=== PATIENT | female | born 1955 | race Caucasian/White ===

== ENCOUNTER 2016-06-21 15:11 | Inpatient (IN) | payer OTHER ==
[~2016-06-21] VITALS: Ht 167.6 cm; Wt 66.0 kg
[2016-06-21 15:37] LABS: BASOPHILS 0.3 % (0.0-2.0); EOSINOPHILS 0.5 % (0-7); HEMATOCRIT 39.9 % (36.0-48.0); HEMOGLOBIN 13.4 g/dL (12-16); IMMATURE GRANULOCYTES 0.2 % (0-5); LYMPHOCYTES 43.9 % (15-50); MCH 34.4 pg (26.0-34.0); MCHC 33.6 g/dL (31.0-37.0); MCV 102.3 fL (80.0-100.0); MEAN PLATELET VOLUME 10.5 fL (7.4-10.4); MONOCYTES 13.5 % (2-11); NEUTROPHILS 41.6 % (40-80); PLATELET COUNT 152 10x3/uL (130-400); RDW 12.6 % (11.5-14.5); WBC 6.1 10x3/uL (4.8-10.8)
[2016-06-21 15:54] LABS: APTT 30.4 SECONDS (22.8-39.4); INR 0.92 (0.85-1.17); PROTIME 12.2 SECONDS (11.6-15.0)
[2016-06-21 16:06] LABS: ALBUMIN 4.1 g/dL (3.4-5.0); BILIRUBIN - TOTAL 0.37 mg/dL (0.2-1.3); CALCIUM 9.5 mg/dL (8.5-10.1); CARBON DIOXIDE 26.9 mmol/L (21.0-32.0); POTASSIUM - SERUM 3.9 mmol/L (3.5-5.1); PROTEIN - SERUM 7.9 g/dL (6.4-8.2)
[2016-06-21 21:49] LABS: UDS - AMPHET NEGATIVE QUAL (NEGATIVE); UDS - BARB NEGATIVE QUAL (NEGATIVE); UDS - BENZO NEGATIVE QUAL (NEGATIVE); UDS - COCAINE NEGATIVE QUAL (NEGATIVE); UDS - METH NEGATIVE QUAL (NEGATIVE); UDS - OPIATE NEGATIVE QUAL (NEGATIVE); UDS - PCP NEGATIVE QUAL (NEGATIVE); UDS - THC NEGATIVE QUAL (NEGATIVE)
--- NOTE | 2016-06-21 23:08 | NUR ---
RECEIVED TO ROOM 2101 60 Y/O FEMALE UNDER DR HINES'S CARE FOR CVA FROM ER VIA STRETCHER, AT BEDSIDE. DROWSY, SEDATED, DOES KNOW WHERE SHE IS. RT FA SL INTACT WITH NO R/S NOTED AT SITE. ORIENTATION TO ROOM, BED, C/L PHONE AND BATHROOM GIVEN WITH UNDERSTANDING VERBALIZED. LEFT SIDE FACIAL DROOP NOTED, SPEECH CLEAR AT TIMES, OTHERWISE SLURRED.HANDGRIPS EQUAL.HOB UP SR UP X2, C/L IN REACH. CONTINUE TO MONITOR.
[2016-06-22] VITALS (7 sets, daily range): BP systolic 112–145; BP diastolic 62–90; Ht 167.6 cm; Wt 66.0 kg
[2016-06-22] MEDS ORDERED: AMBIEN5 MG (00:57)
[2016-06-22] MEDS ORDERED: TOPROL XL25 MG (00:57)
[2016-06-22] MEDS ORDERED: LISINOPRIL10 MG (00:58)
[2016-06-22] MEDS ORDERED: ZOLOFT25 MG (00:59)
--- NOTE | 2016-06-22 01:56 | NUR ---
EYES CLOSED, RESP UNLAB WITH NO S/S OF ACUTE DISTRESS NOTED. C/L IN REACH.
--- NOTE | 2016-06-22 07:31 | NUR ---
AM ROUNDING- PT LAYING ON LEFT SIDE SLEEPING. AT BEDSIDE. IV SEEN TO RIGHT FOREARM THAT IS SALINE LOCKED AND PATENT. ON ROOM AIR. NO MONITOR. PER REPORT FROM LOCAL TELEPHONE OPERATOR NURSE SREE, SREE STATED THAT SHE DID MOST OF PTS HOME MEDICATIONS ON ADMISSION BUT THERE WERE STILL SOME THAT NEEDED TO BE DONE. PER LOCAL TELEPHONE OPERATOR NURSE SREE, PTS IS SUPPOSE TO BRING THE REST OF PTS MEDICATION LIST TO BE UPDATED. WILL CONTINUE TO MONITOR.
[2016-06-22 08:17] LABS: CHOL - HDL RATIO 3.8 ratio (2.3-4.1); LDL-HDL RATIO 2.5 ratio (1.5-3.5)
[2016-06-22 09:27] LABS: HEMOGLOBIN A1C 5.4 % (4.8-6.0)
[2016-06-22] MEDS ORDERED: BUSPAR 15 MG TA15 MG PO (13:37)
[2016-06-22] MEDS ORDERED: HYDROXYZINE PA100 MG PO (13:38)
--- NOTE | 2016-06-22 13:39 | NUR ---
WHILE ASKING PT AND ABOUT HOME MEDICATION, STATED THAT DOCTOR CAME IN THIS MORNING AND WENT THROUGH PTS HOME MEDICATIONS AND TYPED THEM ALL IN THE COMPUTER. UPDATED MEDICATION LIST WITH TWO MORE MEDICATIONS THAT WEREN'T IN THE SYSTEM YET BY THE HELP OF THE PT AND . WAS BEING HELPFUL LETTING ME KNOW WHICH MEDICATIONS WERE BEING TAKEN. PT TOLD ME WHEN THE LAST TIME SHE TOOK THEM WAS. PT GOT UPSET BECAUSE STATED A MEDICATION PT WAS TAKING FOR HER "DRINKING" STATED AND PT ASKED ME TO LEAVE THE ROOM. DID PT REQUESTED. WILL CONTINUE TO MONITOR.
--- NOTE | 2016-06-22 15:28 | NUR ---
SCD'S ON BILATERAL LE
--- NOTE | 2016-06-22 17:18 | NUR ---
UPON BEING CALLED INTO PTS ROOM, PTS STATED PT SLIDE DOWN BED AND CAUGHT HERSELF WHILE TRYING TO USE THE BATHROOM. PT HAS SLIGHT FACIAL DROOP TO LEFT SIDE WITH UNEQUAL PLASTICS HEAT WELDER STRENGTH. PUPILS ARE EQUAL. PT STATED HER NAME, , AND WHAT YEAR IT IS. SHE IS ALERT TO PERSON, PLACE, AND TIME. PAGED DR. HINES TO INFORM HIM OF THIS. AWAITING CALLBACK.
--- NOTE | 2016-06-22 17:21 | NUR ---
INFORMED PT AND FOR PT TO NOT TAKE ANYTHING BY MOUTH.
--- NOTE | 2016-06-22 17:25 | NUR ---
DR. HINES CALLED BACK. INFORMED HIM OF WHAT HAPPENED. NO NEW ORDERS RECEIVED.
--- NOTE | 2016-06-22 18:32 | NUR ---
PT IS LAYING IN BED ON BACK WITH EYES CLOSED RESTING. FAMILY MEMBERS AT BEDSIDE. BED ALARM ON. PT HAS SLIGHT FACIAL DROOP TO LEFT SIDE WITH LEFT ARM WEAKNESS AND LEFT LEG WEAKNESS. DR. HINES IS AWARE. WILL PASS THIS ON IN REPORT AND CONTINUE TO MONITOR.
--- NOTE | 2016-06-22 19:30 | NUR ---
ASSIST WITH USE OF BEDPAN, BENSON WELL. LEFT ARM PARALYSIS NOTED ALONG WITH LEFT FACIAL DROOP AND SLURRED SPEECH. MULTIPLE FAMILY MEMBERS VISITING AT BEDSIDE. BANANA BAG INFUSING W/O DIFF VIA PUMP @ 100CC/HR WITH NO R/S NOTED AT SITE ON RIGHT ARM. ALERT AND ORIENTED X3, RESP UNLAB. VOICES NO C/O PAIN OR DISCOMFORT AT THIS TIME. HOB UP SR UP X2, C/L IN REACH. CONTINUE TO MONITOR.
--- NOTE | 2016-06-22 21:26 | NUR ---
ATIVAN 2MG IV ADM. FOR S/S AND VERBAL C/O ANXIETY. BENSON INJ WELL. C/L IN REACH.
[2016-06-23 01:12] VITALS: BP 105/67
--- NOTE | 2016-06-23 02:28 | NUR ---
EYES CLOSED, RESP UNLAB WITH NO S/S OF ACUTE DISTRESS NOTED. C/L IN REACH. FAMILY MEMBERS AT BEDSIDE.
[2016-06-23 05:21] VITALS: BP 134/65
--- NOTE | 2016-06-23 07:15 | NUR ---
BED ALARM GOING OFF. PT HAD SLID HERSELF FROM THE BED INTO THE CHAIR NEXT TO HER BED. NO INJURY NOTED. PT REMINDED TO CALL FOR ASSISTANCE. PT A/O X3 , BUT SEEM SLIGHTLY CONFUSED. PT DENIES NEEDS EXCEPT JUST WANTING TO GET UP. PT'S SON WAS IN THE ROOM, BUT HAD STEPPED OUT FOR A MINUTE. ASSESMENT DONE. CALL LIGHT WITH IN REACH. WILL CONT. TO MONITOR. BOX ALARM PLACED BACK ONTO PT'S SHIRT.
[2016-06-23 08:49] VITALS: BP 117/73
--- NOTE | 2016-06-23 09:30 | NUR ---
UP TO CHAIR WITH CALL LIGHT IN REACH. PAPER TUBE MACHINE OPERATOR AT BS ASSISTING WITH NEEDS. WILL CONT. PLAN OF CARE.
[2016-06-23 12:16] VITALS: BP 118/64
[2016-06-23 14:52] VITALS: BP 96/52
--- NOTE | 2016-06-23 17:52 | NUR ---
PT SLEEPING. APPEARS COMFORTABLE. FAMILY IN ROOM. BOX ALARM ATTACHED TO PT. CALL LIGHT WITH INREACH. WILL CONT. TO MONITOR.
[2016-06-23 20:00] VITALS: BP 117/64
--- NOTE | 2016-06-23 23:07 | NUR ---
Recieved report, patient A & O , left side facal drooping, left side weakness , box alarm attached, family at bedside, refuses SCD's, left forearm per. IV, patent, saline locked, uses bed haley with family assist, no acute distress noted or voiced by patient, call light, water and bedside table in reach.
[2016-06-24] VITALS: BP 107/69
--- NOTE | 2016-06-24 01:08 | NUR ---
Patient resting quietly in bed eyes closed, family at bedside, call light, water and bedside table within reach, no acute distress noted, will continue to monitor.
[2016-06-24 04:00] VITALS: BP 108/65
--- NOTE | 2016-06-24 04:50 | NUR ---
Patient resting in bed eyes closed, family at bedside, call light and hydration in reach, will continue to monitor.
--- NOTE | 2016-06-24 08:04 | NUR ---
ASSESSMENT DONE. PT SLEEPING. EASILY AROUSED. PT ABLE TO MOVE LEFT ARM SOME TODAY. REPORT SOME FEELING IN ARM. SPEECH IMPROVING. SON AT BEDSIDE. PT DENIES NEEDS AT THIS TIME. CALL LIGHT WITH INREACH. WILL CONT. TO MONITOR.
[2016-06-24 08:34] VITALS: BP 112/67
--- NOTE | 2016-06-24 09:58 | NUR ---
IV PATENT. CALL LIGHT IN REACH. WILL CONT. PLAN OF CARE.
[2016-06-24] MEDS ORDERED: AMBIEN10 MG PO (10:21)
[2016-06-24] MEDS ORDERED: BUSPAR 15 MG TA15 MG PO (10:21)
[2016-06-24] MEDS ORDERED: LISINOPRIL10 MG PO (10:22)
[2016-06-24] MEDS ORDERED: METOPROLOL TART25 MG PO (10:26)
[2016-06-24] MEDS ORDERED: HYDROXYZINE PA100 MG PO (10:27)
[2016-06-24] MEDS ORDERED: ZOLOFT100 MG PO (10:27)
--- NOTE | 2016-06-24 10:38 | NUR ---
Nutrition follow-up: Diet: regular puree with thin liquids PO intake 75-100% of meals labs reviewed Wt: 145# Banana Bag discontinued Will provide food choices with selective menus and honor food preferences within diet restrictions. RDN following.
--- NOTE | 2016-06-24 10:56 | NUR ---
Rehab Note- The patient has [employer] insurance. Spoke with Vandana Raymond in business office & stated does not have IRF benefits. Informed Onofre Clark that patient doesn't have IRF benefits. Thank you for this referral! Mary Lynn RN Clinical Liaison, [facility]
[2016-06-24 11:00] VITALS: BP 109/63
--- NOTE | 2016-06-24 12:37 | NUR ---
PT LAYING IN BED TALKING ON THE PHONE. A/O. SPEECH ONLY SLIGHTLY SLURRED. FAMILY AT BEDSIDE. DENIES NEEDS. CALL LIGHT WITH IN REACH. WILL CONT TO MONITOR.
--- NOTE | 2016-06-24 15:37 | NUR ---
PT C/O HEADACHE WITH NUMBNESS AND TINGLINGLING ON RIGHT SIDE OF FACE. ALSO, C/O DIZZINESS AND INCREASE IN LEFT LEG WEAKNESS. CALL AND SPOKE WITH DR. MILIAN. RECEIVED ORDERS FOR COUMADIN 5MG NOW AND TO START DAILY PT/INR IN AM. ALSO TO GIVE LOVENOX 30MG SQ NOW. PT NOTIFIED. WILL CONT. TO MONITOR.
[2016-06-24 16:39] VITALS: BP 112/63
--- NOTE | 2016-06-24 16:50 | NUR ---
Patient Name: BESSIE PIERRE Admission Status: ER Accout number: [id number] Admission Date: 06-21-2016 : 1955 Admission Diagnosis:SLURRED SPEECH Attending: LANA Current LOS: 3 Anticipated DC Date: 06-25-2016 Planned Disposition: Inpatient Rehab Primary Insurance: [employer] EXCHANGE PLANNED EXTERNAL PROVIDER: [facility] Discharge Planning Comments: * Is the patient Alert and Oriented? Yes 0 * How many steps to enter\exit or inside your home? 2 0 * PCP NONE 0 * Pharmacy [facility] 0 * Preadmission Environment Home with Family 0 * ADLs Independent 0 * Equipment None 0 * Other Equipment NO MEDICAL EQUIPMENT PROVIDER PREFERENCE 0 * List name and contact numbers for known caregivers / representatives who currently or will assist patient after discharge: SHMUEL PIERRE, SPOUSE, 0 * Community resources currently utilized None 0 * Please name any agencies selected above. NONE 0 * Additional services required to return to the preadmission environment? Yes * Can the patient safely return to the preadmission environment? Yes 0 * Has this patient been hospitalized within the prior 30 days at any hospital? No 0 CM MET WITH PT IN ROOM TO DISCUSS DISCHARGE PLANNING AND NEEDS. PT REPORTS LIVING AT HOME INDEPENDENTLY WITH SPOUSE BEFORE HER STROKE. PT HAS NO MEDICAL EQUIPMENT AND NO OUTSIDE SERVICES ASSISTING IN THE HOME. CM DISCUSSED AVAILABILITY OF HOME HEALTH, REHAB SERVICES AND MEDICAL EQUIPMENT. PT WOULD LIKE INPATIENT REHAB, REPORTS HER SPOUSE WILL PICK HER UP FOR DISCHARGE HOME. PT WOULD LIKE REFERRAL SENT TO [facility], [facility] FOR INPATIENT REHAB. CM FAXED REFERRAL TO [facility], [facility], . CM TO FOLLOW UP WITH PRODUCT SAFETY TEST ENGINEER FOR [facility], [facility] TOMORROW (JAYANT, ). 6Th Grade Teacher: Riley Martínez
--- NOTE | 2016-06-24 17:42 | NUR ---
PT RESTING. FAMILY AT BEDSIDE. PT APPEARS COMFORTABLE. RESP EVEN AND UNLABORED. CALL LIGHT WITH IN REACH. WILL CONT. TO MONITOR.
--- NOTE | 2016-06-24 19:37 | NUR ---
RESUMED CARE OF PT, PT HAS L. SIDE WEAKNESS, ON RA,RFA IV-BANNANA BAG @50, REFUSING SCD, BOX ALARM ON, FAMILY AT BEDSIDE, CALL LIGHT IN REACH, BED IS LOW, SRX2, WILL CONTINUE TO MONITOR
--- NOTE | 2016-06-24 19:59 | NUR ---
IV LEAKING, REMOVED FROM RFA, DIDNT REPLACE NOTHING IV EXCEPT ATIVAN WHICH IS PRN
[2016-06-24 20:00] VITALS: BP 127/71
[2016-06-25] VITALS: BP 106/52
--- NOTE | 2016-06-25 03:20 | NUR ---
SIZE WORKER AT BEDSIDE TO OBTAIN VITALS, CALL LIGHT IN REACH. WILL CONTINUE WITH PLAN OF CARE.
[2016-06-25 04:00] VITALS: BP 125/63
[2016-06-25 06:22] LABS: INR 0.92 (0.85-1.17); PROTIME 12.2 SECONDS (11.6-15.0)
--- NOTE | 2016-06-25 07:34 | NUR ---
PT LAYING IN BED PLAYING ON TABLET. A/O. ASSESSMENT DONE. SPEECH SLURRED, MORE SO THAN YESTERDAY. PT'S IV HAD INFILTRATED THROUGHOUT THE NIGHT AND WAS REMOVED BUT NOT RESTARTED. PT C/O TREMORS AND ANXIETY. STATES SHE IS STILL HAVE DETOX S/S. REQUEST IV BE RE-SITED AND BANANA BAG BE RE-STARTED AND REQUEST ATIVAN. C/O HEADACHE AND DIZZY BUT THINKS THAT IS D/T TO DETOX S/S. CALL LIGHT WITH IN REACH. BOX ALARM ATTACH. WILL CONT. TO MONITOR.
[2016-06-25 08:31] VITALS: BP 126/64
--- NOTE | 2016-06-25 09:40 | NUR ---
RESTS IN BED WITH EYES CLOSED. CALL LIGHT IN REACH. WILL CONT. PLAN OF CARE.
--- NOTE | 2016-06-25 11:47 | NUR ---
Patient Name: BESSIE PIERRE Encounter No: [id number] : 1955 Primary Insurance: [employer] HLTH EXCHANGE Anticipated DC Date: 06-25-2016 Planned Disposition: Inpatient Rehab External Planned Provider: UNKNOWN DCP follow-up note: CM RECEIVED CALL FROM JAYANT [phone], DELIVERY PROFESSIONAL FOR [facility], PT HAS NO PRECERT REQUIRED FOR INPATIENT, $2500 DEDUCTIBLE AND $7,100 OUT OF POCKET THAT PT HAS NOT MET AT THIS TIME. PT'S TOTAL OUT OF POCKET IS $9,600, PT WILL NEED 10% DOWN AND AT LEAST MAKE PAYMENTS OF $100 PER MONTH. CM SPOKE TO PT AND SPOUSE IN ROOM, PT'S SPOUSE REPORTS HE CANNOT AFFORD THIS AND PT WILL HAVE [employer] INSURANCE POLICE # [id number] STARTING ON JUNE 30, 2016. CM DISCUSSED INPATIENT REHAB, SENIOR CARE REHAB, OUTPATIENT THERAPY AND HOME HEALTH SERVICES. PT'S SPOUSE DOES NOT THINK HE CAN TAKE CARE OF PT AT HOME. PT'S SPOUSE REVIEWED [employer] [facility] WEBSITE FOR BENEFITS AND REPORTS BEING UNSURE OF PT'S BENEIFITS STARTING IN JUNE AND IF REHAB IS GOING TO BE AFFORDABLE THEN. CM ADVISED SPOUSE TO CALL AMBETTER TO DISCUSS AVAILABLE SERVICES, WHAT IS COVERED AND HOW MUCH PT WOULD BE RESPONSIBLE FOR WELL IN NETWORK PROVIDERS. CM WAS LEAVING ROOM, PT QUICKLY GOT OUT OF BED ON THE FAR SIDE, CM CAUGHT PT AND ASKED PT TO SIT DOWN, SHE DID NOT; PT'S SPOUSE TOOK CM PLACE AND TOLD PT TO SIT BACK DOWN UNTIL HELP ARRIVED IN THE ROOM, PT DID NOT, PT'S SPOUSE PUSHED PT BACK ONTO THE BED. NURSING STAFF ARRIVED AND TOOK CONTROL OF THE SITUATION. CM WAITING PT'S SPOUSE TO EXPLORE PT'S INSURANCE BENEFITS, TO CALL AMBETTER TO DETERMINE PT'S BENEFITS AND HOW MUCH REHAB WILL COST PT OUT OF POCKET AND TO MAKE DECISION FOR REHAB PLACEMENT. Riley Martínez, CASE MANAGEMENT
[2016-06-25 12:05] VITALS: BP 113/67
--- NOTE | 2016-06-25 15:58 | NUR ---
PT SLEEPING. APPEARS COMFORTABLE. RESP EVEN AND UNLABORED. SPOUSE AT BEDSIDE. BOX ALARM ATTACHED TO PT. CALL LIGHT WITH IN REACH. WILL CONT. TO MONITOR.
[2016-06-25 16:00] VITALS: BP 129/74
--- NOTE | 2016-06-25 18:03 | NUR ---
PT SITTING UP IN BED VISIT WITH FAMILY. NO DISTRESS NOTED. BOX ALARM ATTACHED. CALL LIGHT WITH IN REACH. WILL CONT. TO MONITOR.
--- NOTE | 2016-06-25 19:32 | NUR ---
RESUMED CARE OF PT, ,. IV-R. WRIST-SL, BOX ALARM ON, FAMILY AT BEDSIDE, DENIES ANY NEEDS, CALL LIGHT IN REACH, BED IS LOW, SRX2, WILL CONTINUE TO MONITOR
[2016-06-25 20:49] VITALS: BP 128/76
[2016-06-26 00:02] VITALS: BP 116/75
[2016-06-26 04:15] VITALS: BP 138/92
[2016-06-26 06:41] LABS: INR 1.03 (0.85-1.17); PROTIME 13.3 SECONDS (11.6-15.0)
--- NOTE | 2016-06-26 07:23 | NUR ---
AM ROUNDING- PT LAYING ON LEFT SIDE WITH EYES CLOSED RESTING. FAMILY MEMBER (SON) AT BEDSIDE RESTING. IV SEEN TO RIGHT WRIST THAT IS SALINE LOCKED AND PATENT. BEDSIDE COMMODE SEEN. ON ROOM AIR. PER REPORT FROM SENIOR COMPUTER SPECIALIST NURSE, MARIA E PT HAS LEFT SIDED WEAKNESS. NO NEED AT CURRENT TIME. WILL CONTINUE TO MONITOR.
--- NOTE | 2016-06-26 07:38 | NUR ---
PAGED DR. VILLEDA TO LET HER KNOW OF PTS PT/INR LAB RESULTS FROM THIS MORNING ORDERED. AWAITING CALLBACK.
--- NOTE | 2016-06-26 07:43 | NUR ---
RECEIVED CALLBACK FROM DR. VILLEDA WITH NEW ORDERS. WILL CONTINUE TO MONITOR.
[2016-06-26 08:55] VITALS: BP 131/77
--- NOTE | 2016-06-26 10:33 | NUR ---
PT REFUSES SCDS. PT IS ON LOVENOX INJECTION FOR DVT PREVENTION.
[2016-06-26 13:42] VITALS: BP 105/61
--- NOTE | 2016-06-26 14:08 | NUR ---
PTS FAMILY MEMBER CAME TO ME TO INFORM ME THAT PT FELL WHEN GETTING UP FROM THE BATHROOM. PTS FAMILY MEMBER STATED SHE DID NOT HIT HER HEAD. PT DENIES ANY PAIN AT THIS TIME. INFORMED PT THAT NEXT TIME SHE DECIDES TO GET UP FROM THE BATHROOM OR GO TO THE BATHROOM TO MAKE SURE SHE USES CALL LIGHT SO STAFF MEMBERS CAN ASSIST HER. SHE AGREED. BED ALARM IS ON, FAMILY MEMBERS ARE AT BEDSIDE, AND NON-SKID SOCKS ARE ON. WILL CONTINUE TO MONITOR.
--- NOTE | 2016-06-26 14:08 | NUR ---
1330- ASSISTED PT TO BATHROOM INSTRUCTED PT TO USE CALL LIGHT IN BATHROOM WHEN DONE SO I CAN ASSIST HER BACK TO BED. PT AGREED.
--- NOTE | 2016-06-26 14:13 | NUR ---
PT IS UP WALKING WITH PHYSICAL THERAPY AROUND NURSING STATION. WILL CONTINUE TO MONITOR.
--- NOTE | 2016-06-26 16:02 | NUR ---
UPON WALKING INTO PTS ROOM, NOTICED PTS BROUGHT PT CHICKEN WINGS TO EAT. PT IS SUPPOSE TO BE ON A PUREE WITH THICKENED LIQUIDS DIET, INFORMED PT OF THIS, PT AND BOTH STATED THEY KNOW. PTS STATED HE IS GOING TO WATCH HER VERY CAREFULLY. WILL CONTINUE TO MONITOR.
[2016-06-26 17:02] VITALS: BP 95/57
--- NOTE | 2016-06-26 17:24 | NUR ---
PT SITTING UP IN BED PLAYING ON TABLET. AT BEDSIDE. NO NEED AT CURRENT TIME. WILL CONTINUE TO MONITOR.
--- NOTE | 2016-06-26 19:29 | NUR ---
RESUMED CARE OF PT, ON RA, IV-R.WRIST-SL, BOX ALARM IS ON, AT BEDSIDE, EXPLAIN IMPORTANTS OF CALLING FOR ASSIST, DENIES ANY NEEDS, CALL LIGHT IN REACH. BED IS LOW, SRX2, WILL CONTINUE TO MONITOR
[2016-06-26 20:15] VITALS: BP 107/56
[2016-06-27] VITALS (7 sets, daily range): BP systolic 94–128; BP diastolic 58–78
[2016-06-27 05:38] LABS: INR 1.18 (0.85-1.17); PROTIME 14.9 SECONDS (11.6-15.0)
--- NOTE | 2016-06-27 07:30 | NUR ---
AM ROUNDING- PT LAYING IN BED ON BACK WITH EYES OPEN RESTING. IV SEEN TO RIGHT WRIST THAT IS SALINE LOCKED AND PATENT. ON ROOM AIR. NO MONITOR. BEDSIDE COMMODE. BED BOX ALARM IS ON AND ATTACHED TO PT. ON LOVENOX INJECTION FOR DVT PREVENTION. REFUSES SCDS. SLIGHT FACIAL DROOP TO LEFT SIDE. PT HAS LEFT SIDED WEAKNESS. NO NEED AT CURRENT TIME. WILL CONTINUE TO MONITOR.
--- NOTE | 2016-06-27 14:45 | NUR ---
PT IS UP WALKING WITH PHYSICAL THERAPY.
--- NOTE | 2016-06-27 18:19 | NUR ---
PT SITTING UP IN BED ON TABLET. DENIES ANY NEED AT THIS CURRENT TIME. WILL CONTINUE TO MONITOR.
--- NOTE | 2016-06-27 19:32 | NUR ---
RECEIVED REPORT. IV-R.WRIST-SL, BOX ALARM ON, DENIES ANY NEEDS AT THIS TIME, CALL LIGHT IN REACH, BED IS LOW, SRX2, WILL CONTINUE TO MONITOR
[2016-06-28] VITALS: BP 117/61
--- NOTE | 2016-06-28 02:32 | NUR ---
SLEEPING, NO DISTRESS NOTICED, CALL LIGHT IN REACH
[2016-06-28 04:00] VITALS: BP 101/67
[2016-06-28 05:43] LABS: INR 1.23 (0.85-1.17); PROTIME 15.4 SECONDS (11.6-15.0)
--- NOTE | 2016-06-28 06:56 | NUR ---
RECEIVED PT REPORT. WILL CONTINUE PLAN OF CARE. NO CO PAIN AT THIS TIME. WILL CONTINUE TO MONITOR.
--- NOTE | 2016-06-28 07:23 | NUR ---
PT IS ALERT. ASSESSMENT DONE PER FLOWSHEET. NO OTHER NEEDS AT THIS TIME. WILL CONTINUE TO MONITOR.
[2016-06-28 08:00] VITALS: BP 110/70
[2016-06-28 12:00] VITALS: BP 96/56
--- NOTE | 2016-06-28 12:13 | NUR ---
Nutrition follow-up: Diet changed to thin liquids mechanical soft PO intake ~75% of meals Labs reviewed Wt: 143# RDN following.
--- NOTE | 2016-06-28 15:04 | NUR ---
NO SS OF DISTRESS. WILL CONTINUE TO MONTIOR.
[2016-06-28 16:00] VITALS: BP 103/65
--- NOTE | 2016-06-28 19:37 | NUR ---
RESUMED CARE OF PT, VISITING WITH FAMILY, IV-R.WRIST-SL, BOX ALARM ON, BED IS LOW, SRX2, DENIES ANY NEEDS, CALL LIGHT IN REACH
[2016-06-29] VITALS: BP 109/64
--- NOTE | 2016-06-29 01:49 | NUR ---
PT LAYING IN BED NO DISTRESS OBSERVED CALL LIGHT IN REACH WILL MONITOR
--- NOTE | 2016-06-29 02:55 | NUR ---
ANSWER CALL LIGHT PT WAS IN CHAIR, ASK HOW SHE GOT THERE, SHE SAID SHE CRAWL. I ASK IF SHE FELL SHE SAID YES, NOTICE BUMP ON HEAD, NOTIFIED KAVIN, WILL CONTINUE TO MONITOR PT
[2016-06-29 04:00] VITALS: BP 99/64
[2016-06-29 06:23] LABS: INR 1.38 (0.85-1.17); PROTIME 16.9 SECONDS (11.6-15.0)
[2016-06-29 08:20] VITALS: BP 139/83
--- NOTE | 2016-06-29 10:37 | NUR ---
PT IS ALERT. ASSESSMENT DONE PER FLOWSHEET. NO OTHER NEEDS AT THIS TIME. WILL CONTINUE TO MONITOR.
[2016-06-29 12:07] VITALS: BP 92/59
[2016-06-29 16:07] VITALS: BP 94/56
[2016-06-29] MEDS ORDERED: IPRAT-ALBUT 0.5-3 ML UPD (17:12)
[2016-06-29] MEDS ORDERED: LOVENOX30 MG/0.3 SC ×2 (17:15→17:29)
[2016-06-29] MEDS ORDERED: LISINOPRIL10 MG PO (17:23)
[2016-06-29] MEDS ORDERED: LIPITOR10 MG PO (17:23)
[2016-06-29] MEDS ORDERED: ASPIRIN81 MG PO (17:24)
--- NOTE | 2016-06-29 17:24 | NUR ---
Patient Name: BESSIE PIERRE Encounter No: [id number] : 1955 Primary Insurance: [employer] HLTH EXCHANGE Anticipated DC Date: 06-29-2016 Planned Disposition: Outpatient clinics\services (Programs) External Planned Provider: HOME WITH FOLLOW UP AT [facility] FOR DAILY LABS DCP follow-up note: CM RECEIVED CALL FROM PT'S SPOUSE WHO WANTS TO DISCHARGE HOME TODAY WITH PT. CM NOTIFIED PT'S BEDSIDE NURSE WHO HAS PAGED DR. VILLEDA AND IS WAITING RETURN CALL FROM THE PAGE. CM RECEIVED HOME HEALTH ORDER AND SPOKE TO PT AND SPOUSE IN ROOM. PT'S SPOUSE WOULD RATHER HAVE OUTPATIENT REHAB AT TOMORROW THERAPY. CM CALLED [facility], , SPOKE TO ABRAM WHO REPORTED THAT MARIAHR IS OUT OF NETWORK WITH 50% COPAY OF ALLOWED CHARGES. CM CALLED [facility] OUTPAT[facility] IN [place], SPOKE TO KETURAH WHO REPORTS BEING IN NETWORK FOR MARIAHR, BUT ONLY HAVING PHYSICAL THERAPY SERVICES AVAILABLE. CM CALLED [facility] IN [place], , THE PERSON THAT HANDLES INSURANCE WILL NOT BE IN UNTIL TOMORROW. CM NOTIFIED PT AND PT'S SPOUSE. THEY WILL ACCEPT HOME HEALTH DR. VILLEDA REPORTS PT WILL NEED LAB DRAWS; SPOUSE CHOSE [facility]. CM CALLED [facility], , SPOKE TO JAYANT WHO REPORTS BEING IN NETWORK WITH [facility] AND THEY WILL WORK WITH PT LONG PT IS ESTABLISHED WITH PRIMARY CARE DOCTOR; CM PROVIDED PT'S SPOUSE WITH JAYANT'S CARD AND DIRECTED SPOUSE TO CALL [facility] TOMORROW AFTER ESTABLISHING WITH THE DOCTOR PLANNED IN [place] TO ARRANGE HOME HEALTH FOLLOW UP. PT'S SPOUSE STATED UNDERSTANDING AND ALSO SIGNED CHOICE LETTER WELL RELEASE OF INFORMATION FOR CM TO FAX PT'S DISCHARGE INFORMATION TO DR. AISLINN HARRISON IN [place] AT PT REQUEST ([phone], [phone]). PT'S SPOUSE DENIES FURTHER DISCHARGE NEEDS. CM FAXED HOME HEALTH REFERRAL TO [facility], . FOR DISCHARGE, FAX DISCHARGE SUMMARY, INSTRUCTIONS AND MEDICATIONS TO [facility], AND TO DR. AISLINN HARRISON, . Riley Martínez, CASE MANAGEMENT
[2016-06-29] MEDS ORDERED: THIAMINE HCL50 MG PO (17:26)
[2016-06-29] MEDS ORDERED: COUMADIN5 MG PO (17:29)
--- NOTE | 2016-06-30 08:46 | NUR ---
Patient Name: BESSIE PIERRE Encounter No: [id number] : 1955 Primary Insurance: [employer] HLTH EXCHANGE Anticipated DC Date: 06-29-2016 Planned Disposition: Outpatient clinics\services (Programs) External Planned Provider: [facility] DCP follow-up note: CM FAXED DISCHARGE SUMMARY, INSTRUCTIONS AND MEDICATIONS TO [facility], AND TO DR. AISLINN HARRISON, . [facility] TO ARRANGE HOME HEALTH SERVICES WHEN PT ESTABLISHES WITH PRIMARY CARE DOCTOR; PT REPORTED HAVING APPOINTMENT TODAY WITH A DOCTOR IN [place]. PT WAS TO FOLLOW UP WITH OUTPATIENT CLINIC UNTIL HOME HEALTH ARRANGEMENTS ARE COMPLETED. Riley Martínez, CASE MANAGEMENT
--- NOTE | 2016-07-07 13:15 | EC ---
PATIENT:BESSIE PIERRE DATE OF SERVICE: 06/21/16 SEX: F MEDICAL RECORD: [id number] DATE OF : [birth year] LOCATION:D.M2 D.210 AGE OF PATIENT: 60 ADMISSION DATE: 06/21/16 REFERRING PHYSICIAN: INTERPRETING PHYSICIAN: CALE SOUTH M.D. ECHOCARDIOGRAM REPORT ECHO CHARGES 4 ECHO COMPLETE CLINICAL DIAGNOSIS: MCA INFARCT/ETOH ABUSE ECHOCARDIOGRAPHIC MEASUREMENTS (adult normal given) AC root (d.<3.7cm) 2.7 LV Septum d (<1.2 cm> 1.4 Valve Excursion 1.6 LV Septum (systole) 1.7 Left Atria (s.<4.0cm> 3.1 LVPW d(<1.2cm) 1.5 RV (d.<2.3cm) 3.3 LVPW (sytole) 1.8 LV diastole(<5.6CM) 4.8 MV E-F(>70mm/sec) LV systole 3.1 LVOT Diameter 1.7 MV exc.(>10mm) 1.5 Est.ejection fraction (50-75%) Pericardial Effusion N DOPPLER: LVIT A 91.0 E 69.0 LA RVSP 18 LVOT 107 AOP1/2T Asc. Ao 136 RVOT 102 RA PA 109 AV Gradient Peak 7.42 AV Mean 3.4 AV Area 1.8 MV Gradient Peak 3.05 MV Mean 1.41 MV Area COMMENTS: Box Car Bracer: Jesus MCCARTNEY Hydrochloric Acid Operator:2 Dr. South TAPE# PACS DATE OF SERVICE: 06/22/2016 Echocardiogram Report REFERRING PHYSICIAN: Dr. Chavez. INDICATION: CVA. DESCRIPTION: Left ventricle demonstrates left ventricular hypertrophy. No wall motion abnormalities are seen. Estimated ejection fraction is 55%. I do not ECHOCARDIOGRAM REPORT [id number] BESSIE PIERRE see any evidence of mass or thrombus in the left ventricle apex. Mitral valve is structurally normal. There is no regurgitation or prolapse seen. Left atrium is normal in size. The aortic valve is trileaflet. There is no stenosis or regurgitation seen. Right ventricle is mildly dilated. Tricuspid valve is structurally normal. There is trivial regurgitation seen. Right atrium is normal size. There is no pericardial effusion noted. IMPRESSION: 1. Left ventricular hypertrophy with preserved ejection of 55%. 2. Trivial tricuspid regurgitation. 3. No evidence of any mass or thrombus in the left ventricle apex. 4. No evidence of atrial septal defect, ventricular septal defect or patent foramen ovale. TRANSINT:[id number] Voice Confirmation ID: [id number] DOCUMENT ID: [id number] CALE SOUTH M.D. at 1315 CC: [id number] DICTATION DATE: 06/22/16 142 CARE SPECIALIST: 06/22/16 1432 DIS IN 06/29/16 [id number] [place] [address]
== END 2016-06-29 18:46 | disposition home or self-care (01) | DRG 65 ==
LOC: D.ER 15:11 → D.M2 20:38
PROVIDERS: Emergency Medicine; Psychiatry & Neurology Neurology; ADMIT Family Medicine
DX: I63.511 Cerebral infarction due to unspecified occlusion or stenosis of right middle cerebral artery (principal); G81.94 Hemiplegia, unspecified affecting left nondominant side; R48.2 Apraxia; E78.5 Hyperlipidemia, unspecified; I10 Essential (primary) hypertension; G47.00 Insomnia, unspecified; F41.8 Other specified anxiety disorders; Z74.09 Other reduced mobility; F10.10 Alcohol abuse, uncomplicated; J44.9 Chronic obstructive pulmonary disease, unspecified; Z72.0 Tobacco use

== ENCOUNTER → 2016-07-01 16:10 | Outpatient (CLI) | payer OTHER ==
[2016-06-22 09:49] VITALS: BMI 23.4
[~2016-07-01 16:10] MED LIST: AMBIEN10 MG PO; AMBIEN5 MG; ASPIRIN81 MG PO; BUSPAR 15 MG TA15 MG PO; COUMADIN5 MG PO; HYDROXYZINE PA100 MG PO; IPRAT-ALBUT 0.5-3 ML UPD; LIPITOR10 MG PO; LISINOPRIL10 MG; LISINOPRIL10 MG PO; LOVENOX30 MG/0.3 SC; METOPROLOL TART25 MG PO; THIAMINE HCL50 MG PO; TOPROL XL25 MG; ZOLOFT100 MG PO; ZOLOFT25 MG
[2016-07-01 16:29] LABS: INR 1.6 (0.85-1.17)
== END | disposition home or self-care (01) ==
LOC: D.LABREF 16:10
PROVIDERS: Pediatrics
DX: Z51.81 Encounter for therapeutic drug level monitoring (principal); Z79.899 Other long term (current) drug therapy

== ENCOUNTER → 2016-07-01 18:48 | Outpatient (CLI) | payer OTHER ==
[2016-06-22 09:49] VITALS: BMI 23.4
== END | disposition home or self-care (01) ==
LOC: D.LABREF 18:48
DX: Z51.81 Encounter for therapeutic drug level monitoring (principal); Z79.01 Long term (current) use of anticoagulants; Z86.73 Personal history of transient ischemic attack (TIA), and cerebral infarction without residual deficits

== ENCOUNTER → 2016-07-05 14:51 | Outpatient (CLI) | payer OTHER ==
[2016-06-22 09:49] VITALS: BMI 23.4
[2016-07-05 15:28] LABS: INR 2.51 (0.85-1.17); PROTIME 27.3 SECONDS (11.6-15.0)
== END | disposition home or self-care (01) ==
LOC: D.LABREF 14:51
PROVIDERS: Pediatrics
DX: I63.9 Cerebral infarction, unspecified (principal); I10 Essential (primary) hypertension; F10.10 Alcohol abuse, uncomplicated

== ENCOUNTER → 2016-07-08 15:18 | Outpatient (CLI) | payer OTHER ==
[2016-06-22 09:49] VITALS: BMI 23.4
[2016-07-08 16:43] LABS: INR 5.16 (0.85-1.17); PROTIME 48.5 SECONDS (11.6-15.0)
== END | disposition home or self-care (01) ==
LOC: D.LABREF 15:18
PROVIDERS: Pediatrics
DX: Z51.81 Encounter for therapeutic drug level monitoring (principal); Z79.01 Long term (current) use of anticoagulants

== ENCOUNTER → 2016-07-12 14:02 | Outpatient (CLI) | payer OTHER ==
[2016-06-22 09:49] VITALS: BMI 23.4
[2016-07-12 14:49] LABS: INR 1.07 (0.85-1.17); PROTIME 13.8 SECONDS (11.6-15.0)
== END | disposition home or self-care (01) ==
LOC: D.LABREF 14:02
PROVIDERS: Pediatrics
DX: Z51.81 Encounter for therapeutic drug level monitoring (principal); Z79.01 Long term (current) use of anticoagulants

== ENCOUNTER → 2016-09-14 19:18 | Outpatient (CLI) | payer OTHER ==
[2016-06-22 09:49] VITALS: BMI 23.4
[2016-09-14 19:49] LABS: INR 1.68 (0.85-1.17); PROTIME 19.8 SECONDS (11.6-15.0)
== END | disposition home or self-care (01) ==
LOC: D.LABREF 19:18
PROVIDERS: Internal Medicine
DX: I63.9 Cerebral infarction, unspecified (principal); R13.10 Dysphagia, unspecified; J44.9 Chronic obstructive pulmonary disease, unspecified; I67.1 Cerebral aneurysm, nonruptured